=== PATIENT | male | born 1970 | race Caucasian/White ===

== ENCOUNTER 2020-10-26 13:49 | Emergency (ER) | payer MEDICARE, OTHER ==
[2020-10-26] MEDS ORDERED: IBUPROFEN600 MG PO (15:04)
== END 2020-10-26 15:15 | disposition home or self-care (01) ==
LOC: ER1 13:49
DX: M25.512 Pain in left shoulder (principal); J44.9 Chronic obstructive pulmonary disease, unspecified; F17.210 Nicotine dependence, cigarettes, uncomplicated
CPT/HCPCS: 73030; 99283

== ENCOUNTER → 2020-11-03 | Outpatient (CLI) | payer MEDICARE, OTHER ==
[~2020-11-03] MED LIST: IBUPROFEN600 MG PO
== END ==
LOC: KOH-I 08:45
DX: M25.512 Pain in left shoulder (principal); R60.0 Localized edema; R93.6 Abnormal findings on diagnostic imaging of limbs
CPT/HCPCS: 73221